=== PATIENT | female | born 1990 | race Two or more races ===

== ENCOUNTER 2024-10-01 23:30 | Emergency (ER) | payer OTHER ==
[~2024-10-01] VITALS: Ht 154.9 cm; Wt 63.5 kg
[2024-10-02 02:01] LABS: HEMATOCRIT 37.1 % (36.0-45.00); HEMOGLOBIN 12.3 g/dL (12.0-15.00); MEAN CELL VOLUME 83.7 fL (80.00-100.00); MEAN CORPUSCULAR HEMOGLOBIN 27.7 pg (27.00-32.0); PLATELET COUNT 254 K/uL (150-450); RED BLOOD COUNT 4.43 M/uL (4.00-6.00); RED CELL DISTRIBUTION WIDTH 13.8 % (11.5-14.5)
[2024-10-02 02:18] LABS: CALCIUM 9.2 mg/dL (8.5-10.1); CREATININE SERUM 0.88 mg/dL (0.55-1.02); GFR 73.55; POTASSIUM 4.34 mEq/L (3.5-5.1)
[2024-10-02 03:04] LABS: PH,URINE 6.5 (5.0-8.0); URINE APPEARANCE Clear; URINE BILIRRUBIN Negative (NEGATIVE); URINE BLOOD Small; URINE COLOR Yellow; URINE GLUCOSE Negative (NEGATIVE); URINE KETONE Negative (NEGATIVE); URINE LEUKOCYTE Negative; URINE NITRATE Negative; URINE PROTEIN Negative (NEGATIVE); URINE UROBILINOGEN 0.2 E.U./dl
[2024-10-02 03:08] LABS: URINE BACTERIA 30.5 uL (0.0-1933); URINE EPITHELIAL CELLS 1.8 uL (0.0-38.8); URINE RBC 4.2 uL (0.0-20.8)
[2024-10-02 03:13] LABS: URINE WBC 1.5 uL (0.0-23.2)
== END 2024-10-02 03:21 | disposition home or self-care (01) ==
LOC: ER 23:31
DX: R10.9 Unspecified abdominal pain (principal)